=== PATIENT | male | born 1995 | race Caucasian/White ===

== ENCOUNTER 2018-09-08 09:08 | Emergency (ER) | payer BC ==
[2018-09-08 09:49] VITALS: BP 119/65
[2018-09-08] MEDS ORDERED: Acetaminophen TAB* 325 MG PO ONE (10:24)
--- NOTE | 2018-09-08 10:32 | UC ---
Throat Pain/Nasal Shiva HPI - History of Current Complaint Chief Complaint: UCGeneralIllness Stated Complaint: ST,BODYACHES Time Seen by Provider: 09/08/18 10:31 Pain Intensity: 8 - Allergies/Home Medications Allergies/Adverse Reactions: Allergies Allergy/AdvReac Type Severity Reaction Status Date / Time ibuprofen [From Motrin] Allergy Hives Verified 09/08/18 09:47 PMH/Surg Hx/FS Hx/Imm Hx - Surgical History Surgical History: Yes Surgery Procedure, Year, and Place: EAR TUBES. adenoidectomy - Social History Alcohol Use: None Substance Use Type: None Smoking Status (MU): Light Every Day Tobacco Smoker Type: Cigarettes Amount Used/How Often: 1/2ppd - Immunization History Vaccination Up to Date: Yes Physical Exam Vital Signs: Initial Vital Signs Temp 101.7 F 09/08/18 09:46 Pulse 102 09/08/18 09:46 Resp 20 09/08/18 09:46 BP 119/65 09/08/18 09:46 Pulse Ox 99 09/08/18 09:46 Discharge - Discharge Plan Referrals: Himanshu ABDI,Chuckie Banks [Primary Care Provider] -
[2018-09-08] MEDS ORDERED: methylPREDNISolone 125 MG* 2 ML VIAL IM ONE (10:43)
--- NOTE | 2018-09-08 11:15 | UC ---
Throat Pain/Nasal Shiva HPI - HPI Summary HPI Summary: SOre throat bodyaches and chills, worst sore throat I have ever had, hard to swollow - History of Current Complaint Chief Complaint: UCGeneralIllness Stated Complaint: ST,BODYACHES Time Seen by Provider: 09/08/18 10:31 Hx Obtained From: Patient Onset/Duration: Sudden Onset, Lasting Days Severity: Severe Pain Intensity: 8 Associated Signs & Symptoms: Positive: Dysphagia, Hoarseness, Sinus Discomfort, Nasal Discharge, Fever - Allergies/Home Medications Allergies/Adverse Reactions: Allergies Allergy/AdvReac Type Severity Reaction Status Date / Time ibuprofen [From Motrin] Allergy Hives Verified 09/08/18 09:47 PMH/Surg Hx/FS Hx/Imm Hx Previously Healthy: Yes - Surgical History Surgical History: Yes Surgery Procedure, Year, and Place: EAR TUBES. adenoidectomy - Family History Known Family History: Positive: Cardiac Disease, Hypertension - Social History Alcohol Use: None Substance Use Type: None Smoking Status (MU): Light Every Day Tobacco Smoker Type: Cigarettes Amount Used/How Often: 1/2ppd - Immunization History Vaccination Up to Date: Yes Review of Systems All Other Systems Reviewed And Are Negative: Yes Constitutional: Positive: Fever, Fatigue Skin: Positive: Negative Eyes: Positive: Negative ENT: Positive: Sore Throat, Ear Ache, Nasal Discharge Respiratory: Positive: Cough Cardiovascular: Positive: Negative Gastrointestinal: Positive: Negative Genitourinary: Positive: Negative Motor: Positive: Negative Neurovascular: Positive: Negative Musculoskeletal: Positive: Negative, Myalgia Neurological: Positive: Headache Psychological: Positive: Negative Is Patient Immunocompromised?: No Physical Exam Triage Information Reviewed: Yes Appearance: Well-Nourished, Ill-Appearing, Pain Distress Vital Signs: Initial Vital Signs Temp 101.7 F 09/08/18 09:46 Pulse 102 09/08/18 09:46 Resp 20 09/08/18 09:46 BP 119/65 09/08/18 09:46 Pulse Ox 99 09/08/18 09:46 Vital Signs Reviewed: Yes Eye Exam: Normal ENT: Positive: Pharyngeal erythema, Nasal congestion, Nasal drainage, Tonsillar swelling, Tonsillar exudate - right tonsil Dental Exam: Normal Neck exam: Normal Neck: Positive: Supple, Nontender, No Lymphadenopathy Respiratory Exam: Normal Respiratory: Positive: Chest non-tender, Lungs clear, Normal breath sounds Cardiovascular Exam: Normal Cardiovascular: Positive: No Murmur, Pulses Normal, Tachycardia Abdominal Exam: Normal Abdomen Description: Positive: Nontender, No Organomegaly, Soft Bowel Sounds: Positive: Present Musculoskeletal Exam: Normal Neurological Exam: Normal Neurological: Positive: Alert, Muscle Tone Normal Psychological Exam: Normal Skin Exam: Normal Throat Pain/Nasal Course/Dx - Course Course Of Treatment: hx obtained, exam performed ,meds reviewed, negative strep and flu - Differential Dx/Diagnosis Differential Diagnosis/HQI/PQRI: Influenza, Laryngitis, Otitis Media, Pharyngitis, Sinusitis, URI Provider Diagnosis: Tonsillitis Discharge - Sign-Out/Discharge Documenting (check all that apply): Patient Departure All imaging exams completed and their final reports reviewed: No Studies - Discharge Plan Condition: Stable Disposition: HOME Prescriptions: Amoxicillin PO (*) [Amoxicillin 875 MG (*)] 875 mg PO BID #20 tab Patient Education Materials: Tonsillitis (ED) Referrals: Himanshu ABDI,Chuckie Banks [Primary Care Provider] - Additional Instructions: 1. take the medication as prescribed. 2. Rest and increase fluid intake 3.Follow up if you develop any trouble breathing - Billing Disposition and Condition Condition: STABLE Disposition: Home - Attestation Statements Provider Attestation: I was available for consult. This patient was seen by the ROX. The patient was not presented to, seen by, or examined by me. -Gilbert
== END 2018-09-08 11:20 | disposition home or self-care (01) ==
LOC: UCCORT 09:08
DX: J03.90 Acute tonsillitis, unspecified (principal); Z88.6 Allergy status to analgesic agent; F17.210 Nicotine dependence, cigarettes, uncomplicated
CPT/HCPCS: 87651; 96372; 99212; A9270-GY; G0463; J2930

== ENCOUNTER 2018-10-21 20:46 | Emergency (ER) | payer BC ==
[2018-10-21 21:45] VITALS: BP 125/65
--- NOTE | 2018-10-21 21:57 | UC ---
FLU HPI - HPI Summary HPI Summary: Pt with 48 hours progressive body aches, cough, congestion, fever, and headache. no rash + nyquil. mild nausea. 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 adenoidectomy - Family History Known Family History: Positive: Cardiac Disease, Hypertension, Non-Contributory - Social History Occupation: Employed Full-time Alcohol Use: None Substance Use Type: None Smoking Status (MU): Light Every Day Tobacco Smoker Type: Cigarettes Amount Used/How Often: 1/2ppd - Immunization History Vaccination Up to Date: Yes Review of Systems All Other Systems Reviewed And Are Negative: Yes Constitutional: Positive: Fever, Fatigue ENT: Positive: Sore Throat, Nasal Discharge, Sinus Congestion, Sinus Pain/ Tenderness Respiratory: Positive: Cough Musculoskeletal: Positive: Myalgia Neurological: Positive: Headache Is Patient Immunocompromised?: No Physical Exam - Summary Physical Exam Summary: Vital Signs Reviewed: Yes A+Ox3, congested, tired appearing Eyes: Conjunctiva Clear, SASHA. EOM intact and full ENT: Hearing grossly normal TM with fluid L>R, no erythema, turbiantes inflammed and boggy, + PND, mmoist, uvula midline, no exudate, no erythema Neck: Positive: Supple Respiratory: Positive: No respiratory distress, No accessory muscle use + CTA throughout no w/r, mild cough Cardiovascular: RRR nl s1, s2 no m/r CBT <2 sec abd soft + BS nt/nd no guarding, no distension Musculoskeletal Exam: MEDINA x 4 without difficulty Strength Intact, ROM Intact Neurological: Positive: Alert, + sensation throughout Psychological: Positive: Normal Response To Family Skin: Positive: no rash, no ecchymosis Triage Information Reviewed: Yes Vital Signs: Initial Vital Signs Temp 99.9 F 10/21/18 21:42 Pulse 96 10/21/18 21:42 Resp 18 10/21/18 21:42 BP 125/65 10/21/18 21:42 Pulse Ox 100 10/21/18 21:42 Flu Course/Dx - Course Course Of Treatment: Pt with cough, congestion, cough and fevers x 48 horus. Pt with + influenza. VSS. tamiflu. hydrate. motrin/apap. secretion precaution. humidify. work note - Differential Dx/Diagnosis Provider Diagnosis: Influenza A Discharge - Sign-Out/Discharge Documenting (check all that apply): Patient Departure All imaging exams completed and their final reports reviewed: No Studies - Discharge Plan Condition: Stable Disposition: HOME Patient Education Materials: Influenza (ED) Forms: *Gen. Provider Communication, *Work Release Referrals: Himanshu ABDI,Chuckie Banks [Primary Care Provider] - Additional Instructions: - Stay well hydrated. Drink plenty of non-alcoholic, non-caffinated beverages. - Alternate ibuprofen (Advil, Motrin) 600mg and Tylenol (acetaminophen) every 3 hours for pain or fever. Take with food. Do NOT take for more than 4-5 days. - These infections are spread by secretions - do NOT share eating or drinking utensils - clean items you share with other people such as cell phones, computer mouse, TV remote, computer tablets,etc. Once you start to feel better, change your toothbrush and your pillowcase. - get plenty of restful sleep - humidify the air in the room where you sleep - boil water, run a hot steam shower, vaporizer, cups of water by heat register - okay to take over the counter decongestant and cough medication - contact your doctor or return with questions or concerns - Billing Disposition and Condition Condition: STABLE Disposition: Home
[2018-10-21 21:59] LABS: Influenza A Molecular POSITIVE (Negative)
== END 2018-10-21 22:13 | disposition home or self-care (01) ==
LOC: UCCORT 20:46
DX: R50.9 Fever, unspecified (principal); F17.210 Nicotine dependence, cigarettes, uncomplicated
CPT/HCPCS: 99211; G0463

== ENCOUNTER 2019-11-16 16:55 | Emergency (ER) | payer BC ==
[2019-11-16] MEDS ORDERED: Tetan/Diph/Pertus SYR(Tdap)* 0.5 ML SYR(BOOSTRIX) use SYR contains LATEX IM ONE (17:35)
[2019-11-16 17:44] VITALS: BP 103/67
[2019-11-16] MEDS ORDERED: Lidocaine 1% MPF ** 5 ML VIAL INJ ONE (18:02)
--- NOTE | 2019-11-16 18:14 | UC ---
Hand/Wrist HPI - HPI Summary HPI Summary: 23 yo male with a 3 day hx of right hand pain and swelling dorsum of right hand concerned re foreign body ? last td no fever was demolishing a house has been draining pus - History Of Current Complaint Chief Complaint: [facility] Stated Complaint: RT HAND INJ Time Seen by Provider: 11/16/19 17:33 Hx Obtained From: Patient Onset/Duration: Gradual Onset, Lasting Days Severity Initially: Mild Severity Currently: Moderate Pain Intensity: 7 Pain Scale Used: 0-10 Numeric Character Of Pain: Dull, Aching Aggravating Factor(s): Other - touch Alleviating Factor(s): Rest, Elevation Associated Signs And Symptoms: Positive: Swelling, Redness Related History: Dominant Hand Right Hands: 1 - scab 2 - red/swollen - Allergies/Home Medications Allergies/Adverse Reactions: Allergies Allergy/AdvReac Type Severity Reaction Status Date / Time No Known Allergies Allergy Verified 11/16/19 17:44 Home Medications: Home Medications Ibuprofen TAB* [Motrin TAB* 600 MG] 600 mg PO Q8H PRN 10/21/18 [History Confirmed 11/16/19] Cephalexin CAP* [Keflex CAP*] 500 mg PO QID #28 cap 11/16/19 [Rx] Sulfamethox/Trimethoprim DS* [Bactrim DS 800/160 TAB*] 1 tab PO BID #14 tab 11/05 [Rx] PMH/Surg Hx/FS Hx/Imm Hx Previously Healthy: Yes - Surgical History Surgical History: Yes Surgery Procedure, Year, and Place: EAR TUBES. adenoidectomy and tonsilectomy - Family History Known Family History: Positive: Cardiac Disease, Hypertension, Non-Contributory - Social History Alcohol Use: Occasionally Substance Use Type: Marijuana Smoking Status (MU): Light Every Day Tobacco Smoker Type: Cigarettes Amount Used/How Often: 1/2ppd - Immunization History Most Recent Tetanus Shot: unsure Vaccination Up to Date: Yes Review of Systems All Other Systems Reviewed And Are Negative: Yes Constitutional: Positive: Negative Skin: Positive: Negative Eyes: Positive: Negative ENT: Positive: Negative Respiratory: Positive: Negative Cardiovascular: Positive: Negative Gastrointestinal: Positive: Negative Genitourinary: Positive: Negative Motor: Positive: Negative Neurovascular: Positive: Negative Musculoskeletal: Positive: Edema Neurological/Mental Status: Positive: Negative Psychological: Positive: Negative Physical Exam Triage Information Reviewed: Yes Appearance: Well-Appearing, No Pain Distress, Well-Nourished Vital Signs: Initial Vital Signs Temp 98.7 F 11/16/19 17:33 Pulse 78 11/16/19 17:33 Resp 13 11/16/19 17:33 BP 103/67 11/16/19 17:33 Pulse Ox 100 11/16/19 17:33 Vital Signs Reviewed: Yes Eyes: Positive: Conjunctiva Clear ENT: Positive: Hearing grossly normal, Uvula midline. Negative: Nasal congestion, Nasal drainage, Tonsillar swelling, Tonsillar exudate, Trismus, Muffled voice, Hoarse voice Dental Exam: Normal Neck: Positive: Supple, Nontender, No Lymphadenopathy Respiratory: Positive: Lungs clear, Normal breath sounds, No respiratory distress, No accessory muscle use, Respiratory distress Cardiovascular: Positive: RRR, No Murmur Musculoskeletal: Positive: Other: - see image Psychological Exam: Normal Skin Exam: Other - see image Procedures - Procedure Summary Procedure Summary: Procedure : Incision and drainage right hand abscess/remove foreign body if found procedure explained questions answered time out done sterile prep numbed with 1 cc lido incised with 19 g needle explored- no fb noted pus expressed and cultured sterile dressing applied - Incision and Drainage Right Upper Hand Dorsal Anesthesia: Local Instrument(s): Needle Hand/Wrist Course/Dx - Differential Dx/Diagnosis Provider Diagnosis: Abscess of right hand, Cellulitis of right hand Discharge ED - Sign-Out/Discharge Documenting (check all that apply): Patient Departure All imaging exams completed and their final reports reviewed: No - Discharge Plan Condition: Stable Disposition: HOME Prescriptions: Cephalexin CAP* [Keflex CAP*] 500 mg PO QID #28 cap Sulfamethox/Trimethoprim DS* [Bactrim DS 800/160 TAB*] 1 tab PO BID #14 tab Patient Education Materials: Cellulitis (ED), Abscess Incision and Drainage (DC ) Referrals: Chuckie Downs PA [Primary Care Provider] - 2 Days Additional Instructions: YOU NEED TO GO TO THE ER FOR NEW OR WORSENING SYMPTOMS GO TO THE ER IF NOT MARKEDLY IMPROVED IN 48 HOURS a culture is pending no foreign body was noted ...but you may have a retained foreign body especially if this fails to improve you are on 2 antibiotics currently when we get the culture results back hopefully we can have you stop one or them frequent warm soapy soaks elevate elevate elevate - Billing Disposition and Condition Condition: STABLE Disposition: Home
[2019-11-16] MEDS ORDERED: Sulfamethox/Trimethoprim DS 800/160* TAB PO ONE (18:30)
[2019-11-16] MEDS ORDERED: Ketorolac INJ* 30 MG/ML 1 ML VIAL IM ONE (18:30)
[2019-11-16] MEDS ORDERED: Cephalexin CAP* 500 MG PO ONE (18:30)
--- NOTE | 2019-11-17 08:14 | UC ---
- Progress Note Progress Note: xray report right hand : #. Medial and dorsal soft tissue swelling at the level of the wrist and metacarpals and metacarpal phalangeal joints. No regional conspicuous foreign body or subcutaneous emphysema. #. A small metallic foreign body is noted at the medial head of the first proximal phalanx which is likely chronic; correspond with prior injury history. #. Negative for fracture, joint space narrowing, or articular malalignment. R0 Course/Dx - Diagnoses Provider Diagnoses: Abscess of right hand, Cellulitis of right hand Discharge ED - Sign-Out/Discharge Documenting (check all that apply): Patient Departure All imaging exams completed and their final reports reviewed: Yes - Discharge Plan Condition: Stable Disposition: HOME Prescriptions: Cephalexin CAP* [Keflex CAP*] 500 mg PO QID #28 cap Sulfamethox/Trimethoprim DS* [Bactrim DS 800/160 TAB*] 1 tab PO BID #14 tab Patient Education Materials: Cellulitis (ED), Abscess Incision and Drainage (DC ) Referrals: Chuckie Downs PA [Primary Care Provider] - 2 Days Additional Instructions: YOU NEED TO GO TO THE ER FOR NEW OR WORSENING SYMPTOMS GO TO THE ER IF NOT MARKEDLY IMPROVED IN 48 HOURS a culture is pending no foreign body was noted ...but you may have a retained foreign body especially if this fails to improve you are on 2 antibiotics currently when we get the culture results back hopefully we can have you stop one or them frequent warm soapy soaks elevate elevate elevate - Billing Disposition and Condition Condition: STABLE Disposition: Home
--- NOTE | 2019-11-18 12:16 | UC ---
- Progress Note Progress Note: please call the pt. + MRSA cont. with current antibiotics Course/Dx - Diagnoses Provider Diagnoses: Abscess of right hand, Cellulitis of right hand Discharge ED - Sign-Out/Discharge Documenting (check all that apply): Patient Departure All imaging exams completed and their final reports reviewed: Yes - Discharge Plan Condition: Stable Disposition: HOME Prescriptions: Cephalexin CAP* [Keflex CAP*] 500 mg PO QID #28 cap Sulfamethox/Trimethoprim DS* [Bactrim DS 800/160 TAB*] 1 tab PO BID #14 tab Patient Education Materials: Cellulitis (ED), Abscess Incision and Drainage (DC ) Referrals: Chuckie Downs PA [Primary Care Provider] - 2 Days Additional Instructions: YOU NEED TO GO TO THE ER FOR NEW OR WORSENING SYMPTOMS GO TO THE ER IF NOT MARKEDLY IMPROVED IN 48 HOURS a culture is pending no foreign body was noted ...but you may have a retained foreign body especially if this fails to improve you are on 2 antibiotics currently when we get the culture results back hopefully we can have you stop one or them frequent warm soapy soaks elevate elevate elevate - Billing Disposition and Condition Condition: STABLE Disposition: Home
== END 2019-11-16 19:15 | disposition home or self-care (01) ==
LOC: UCCORT 16:55
DX: L02.511 Cutaneous abscess of right hand (principal); L03.113 Cellulitis of right upper limb; M79.89 Other specified soft tissue disorders; F17.210 Nicotine dependence, cigarettes, uncomplicated; Z23 Encounter for immunization
CPT/HCPCS: 87070; 87205; 87640; 87641; 90471; 90715; 96372; 99213; A9270-GY; G0463; J1885